=== PATIENT | female | born 1955 | race Caucasian/White ===

== ENCOUNTER 2019-05-29 18:21 | Inpatient (IN) | payer OTHER ==
[~2019-05-29] VITALS: Ht 162.6 cm; Wt 87.2 kg
[2019-05-29] VITALS (14 sets, daily range): BP systolic 67–99; BP diastolic 39–59; BMI 33.0
[2019-05-29] MEDS ORDERED: LISINOPRIL10 MG PO (19:03)
--- NOTE | 2019-05-29 19:07 | NUR ---
VALSALVA MANUVER ATTEMPTED WITH NO CHANGE IN HEART RATE. PT PROVIDED WITH ICE TO FACE. NO CHANGE IN HEART RATE. EDP FINA AT BEDSIDE FOR FURTHER ORDERS.
--- NOTE | 2019-05-29 19:11 | NUR ---
VITAL SIGNS AT THIS TIME. HR 211, BP 83/50, RR 18
--- NOTE | 2019-05-29 19:24 | NUR ---
VERSED GIVEN. EDP FNIA AT BEDSIDE. RESPIRATORY AT BEDSIDE. PT PLACED ON NRB AT 15L.
--- NOTE | 2019-05-29 19:26 | NUR ---
RESPIRATORY AT BEDSIDE, EDP FINA AT [facility]. PT SHOCKED WITH 200 J.
--- NOTE | 2019-05-29 19:45 | NUR ---
PT LYING SUPINE IN BED. NO ACUTE DISTRESS NOTED. FAMILY AT BEDSIDE. PT AROUSABLE TO VOICE. PT DENIES ANY COMPLAINTS AT THIS TIME. WILL CONTINUE TO MONITOR.
[2019-05-29 20:02] LABS: BASOPHILS 0.2 % (0-2); EOSINOPHILS 1.4 % (0-7); HEMATOCRIT 44.4 % (36.0-48.0); IMMATURE GRANULOCYTES 0.3 % (0-5); LYMPHOCYTES 28.7 % (15-50); MCH 30.2 pg (26.0-34.0); MCHC 33.8 g/dL (31.0-37.0); MCV 89.3 fL (80.0-100.0); MEAN PLATELET VOLUME 9.5 fL (7.4-10.4); MONOCYTES 7.1 % (2-11); NEUTROPHILS 62.3 % (40-80); PLATELET COUNT 342 10x3/uL (130-400); RBC 4.97 10x6/uL (4.00-5.40); RDW 13.7 % (11.5-14.5); WBC 12.8 10x3/uL (4.8-10.8)
[2019-05-29 20:18] LABS: CALC OSMOLALITY 290 mosm/kg (275-300); CALCIUM 9.2 mg/dL (8.5-10.1); CARBON DIOXIDE 21.8 mmol/L (21.0-32.0); CHLORIDE - SERUM 105 mmol/L (98-107); CREATININE - SERUM 1.7 mg/dL (0.6-1.3); GLUCOSE 220 mg/dL (74-106); POTASSIUM - SERUM 4.4 mmol/L (3.5-5.1); SODIUM 141 mmol/L (136-145); UREA NITROGEN 22 mg/dL (7-18); eGFR NON AFRICAN AMERICAN 32 mL/min (90-120)
[2019-05-29 20:25] LABS: APTT 31.1 SECONDS (22.8-39.4); INR 0.92 (0.85-1.17); PROTIME 12.3 SECONDS (11.6-15.0)
[2019-05-29 20:33] LABS: ALBUMIN 3.9 g/dL (3.4-5.0); ALKALINE PHOSPHATASE 158 U/L (30-120); ALT (SGPT) 316 U/L (10-68); BILIRUBIN - TOTAL 0.36 mg/dL (0.2-1.3); CKMB 1.7 U/L (0.0-3.6); CREATINE KINASE 110 UL (21-215); PROTEIN - SERUM 7.7 g/dL (6.4-8.2)
[2019-05-29 20:40] LABS: TROPONIN-I 0.188 ng/mL (0.000-0.060)
--- NOTE | 2019-05-29 21:00 | NUR ---
PT LYING SUPINE IN BED. PT DENIES ANY COMPLAINTS AT THIS TIME. AT BEDSIDE. WILL CONTINUE TO MONITOR.
--- NOTE | 2019-05-29 22:55 | NUR ---
PT ARRIVED ON STRETCHER BY MARIANN BOUCHER. PT SCOOTED SELF FROM STRETCHER TO BED. ALERT AND ORIENTED, SPEECH CLEAR. R AC PIV AND L HAND PIV PATENT, SEE IV FLOWSHEET. NSR ON MONITOR, HR 50'S. PT DENIES ANY NEEDS AT THIS TIME. BED IN LOW POSITION, CALL LIGHT IN REACH. WILL CONTINUE TO MONITOR.
[2019-05-30] VITALS (49 sets, daily range): BP systolic 89–123; BP diastolic 48–71; Ht 162.6 cm; Wt 87.2 kg
--- NOTE | 2019-05-30 01:00 | NUR ---
PT SLEEPING. VSS, NO SIGNS OF ACUTE DISTRESS NOTED. WILL MONITOR.
--- NOTE | 2019-05-30 03:00 | NUR ---
REASSESSMENT COMPLETE, SEE FLOWSHEET.
[2019-05-30 05:35] LABS: BASOPHILS 0.2 % (0-2); EOSINOPHILS 0.2 % (0-7); HEMATOCRIT 39.2 % (36.0-48.0); HEMOGLOBIN 12.8 g/dL (12-16); IMMATURE GRANULOCYTES 0.3 % (0-5); LYMPHOCYTES 38.5 % (15-50); MCH 29.8 pg (26.0-34.0); MCHC 32.7 g/dL (31.0-37.0); MCV 91.2 fL (80.0-100.0); MEAN PLATELET VOLUME 9.4 fL (7.4-10.4); MONOCYTES 12.9 % (2-11); NEUTROPHILS 47.9 % (40-80); PLATELET COUNT 325 10x3/uL (130-400); RDW 14.1 % (11.5-14.5)
[2019-05-30 05:42] LABS: WBC 9.2 10x3/uL (4.8-10.8)
--- NOTE | 2019-05-30 05:50 | NUR ---
PT SLEEPING. VSS, NO SIGNS OF DISTRESS NOTED.
[2019-05-30 06:10] LABS: ALBUMIN 3.3 g/dL (3.4-5.0); ANION GAP 13.3 mmol/L (8-16); BILIRUBIN - TOTAL 0.22 mg/dL (0.2-1.3); CALCIUM 8.2 mg/dL (8.5-10.1); POTASSIUM - SERUM 4.3 mmol/L (3.5-5.1)
[2019-05-30 06:14] LABS: CREATININE - SERUM 1.2 mg/dL (0.6-1.3)
--- NOTE | 2019-05-30 09:08 | NUR ---
0700 PT RECIEVED ALERT AN DORIENTED IN BED DENIES PAIN LEVOPHED INFUSING, WILL CONTINUE TO MONITOR 0900 ASSISTED TO BSC, VOIDED AND ASSISTED BCK TO BED, LEVO WEANED OFF PER IV FLOWSHEET, ATE 100% BREAKFAST
--- NOTE | 2019-05-30 17:03 | NUR ---
PT REPOSITIONS SELF, DENIES ALL NEEDS, FAMILY HERE FOR VISITING HOURS AND UPDATED
--- NOTE | 2019-05-30 18:31 | MORECARE ---
CASE MANAGEMENT DISCHARGE SUMMARY PATIENT: FABRICIO TURNER UNIT: [id number] ADM DATE: 05/29/19 AGE: 63 : 53 SEX: F [facility] AUTHOR: RAJAT BUSTOS PHYSICIAN: REFERRING PHYSICIAN: DUY ALLEN MD DATE OF SERVICE: 05/30/19 Discharge Plan Patient Name: FABRICIO TURNER [facility] : 1955 Planned Disposition: Anticipated Discharge Date: Discharge Date: Expected LOS: Initial Reviewer: [email or web address] Initial Review Date: 05/29/2019 Generated: 05/30/19 7:31 pm DCPIA - Discharge Planning Initial Assessment Updated by [email or web address]: Jami Blake on 05/30/19 6:28 pm * Is the patient Alert and Oriented? Yes * How many steps to enter\exit or inside your home? Patient Name: FABRICIO TURNER Page [phone] at 1831 All edits/amendments must be made on the electronic document DICTATION DATE: 05/30/191830 DRILLING MACHINE OPERATOR: DENISE 05/30/191830 RPT#: [id number] DC DATE: STATUS: ADM IN [facility] [address] [place] [address] END OF REPORT
--- NOTE | 2019-05-30 19:00 | NUR ---
BEDSIDE REPORT AND SHIFT ASSESSMENT COMPLETE, SEE FLOWSHEET. VSS, NO SIGNS OF ACUTE DISTRESS NOTED. PT DENIES NEEDS AT THIS TIME. FALL PRECAUTION TEACHING COMPLETED, PT SAID SHE WILL CALL WHEN SHE NEEDS TO GET UP TO USE RESTROOM. BED IN LOWEST POSITION, CALL LIGHT IN REACH. WILL MONITOR.
--- NOTE | 2019-05-30 23:00 | NUR ---
REASSESSMENT COMPLETE, SEE FLOWSHEET. PT SLEEPING. VSS.
[2019-05-31] VITALS (17 sets, daily range): BP systolic 98–140; BP diastolic 46–80
--- NOTE | 2019-05-31 02:15 | NUR ---
DR GABRIEL AND DR ALLEN AT BEDSIDE. DR ALLEN ASKED US TO CALL CARDIOLOGY AND ASK IF THEY WANTED TO ADD ANYTHING OR MONITOR ANOTHER NIGHT. SHE SAID IT IS OK TO DC IF OK WITH DR URIBE.
--- NOTE | 2019-05-31 03:05 | NUR ---
REASSESSMENT COMPLETE, SEE FLOWSHEET.
[2019-05-31 05:51] LABS: ALBUMIN 3.3 g/dL (3.4-5.0); ALKALINE PHOSPHATASE 111 U/L (30-120); BILIRUBIN - TOTAL 0.32 mg/dL (0.2-1.3); CALCIUM 8.4 mg/dL (8.5-10.1); CARBON DIOXIDE 26.5 mmol/L (21.0-32.0); CHLORIDE - SERUM 105 mmol/L (98-107); MAGNESIUM - SERUM 1.7 mg/dL (1.8-2.4); POTASSIUM - SERUM 4.6 mmol/L (3.5-5.1); SODIUM 139 mmol/L (136-145)
[2019-05-31 05:54] LABS: BASOPHILS 0.2 % (0-2); EOSINOPHILS 3.3 % (0-7); HEMATOCRIT 40.9 % (36.0-48.0); HEMOGLOBIN 13.5 g/dL (12-16); IMMATURE GRANULOCYTES 0.1 % (0-5); LYMPHOCYTES 28.1 % (15-50); MCH 29.9 pg (26.0-34.0); MCV 90.7 fL (80.0-100.0); MEAN PLATELET VOLUME 9.1 fL (7.4-10.4); MONOCYTES 8.2 % (2-11); NEUTROPHILS 60.1 % (40-80); PLATELET COUNT 285 10x3/uL (130-400); RBC 4.51 10x6/uL (4.00-5.40); RDW 13.9 % (11.5-14.5); WBC 10.2 10x3/uL (4.8-10.8)
[2019-05-31 05:55] LABS: ALT (SGPT) 206 U/L (10-68); CALC OSMOLALITY 278 mosm/kg (275-300); CREATININE - SERUM 0.8 mg/dL (0.6-1.3); GLUCOSE 100 mg/dL (74-106); PROTEIN - SERUM 6.6 g/dL (6.4-8.2); UREA NITROGEN 16 mg/dL (7-18); eGFR NON AFRICAN AMERICAN 76 mL/min (90-120)
--- NOTE | 2019-05-31 06:00 | NUR ---
MAG REPLACED PER ELECTROLYTE PROTOCOL, NEXT DOSE DUE AT 1000.
--- NOTE | 2019-05-31 08:18 | NUR ---
PT RESTING IN BED EATING BREAKFAST TRAY. NO COMPLAINTS NOTED AT THIS TIME
--- NOTE | 2019-05-31 11:13 | NUR ---
Nutrition Follow-up: Eating well. Reports eating majority of breakfast this AM. Diet: Cardiac Wt: 191.8# (3/); 192# (3/3); 191.8# (3/) Last BM: 05/30 Labs noted: Mg 1.7, Alb 3.3 Meds noted: MagOx, Protonix -Continue current diet as tolerated. -Monitor wt. -RD following.
--- NOTE | 2019-05-31 13:23 | NUR ---
PHYSICAL THERAPY IN ROOM WALKING PT. WALKED 200 FEET. TOLERATED WELL. VSS. WILL CONTINUE TO MONITOR
--- NOTE | 2019-05-31 15:20 | NUR ---
DR URIBE SAID IT IS OK TO DC.
--- NOTE | 2019-05-31 17:50 | NUR ---
PT WHEELED OUT TO PERSONAL VEHICLE. TOLERATED WELL.
--- NOTE | 2019-05-31 19:16 | MORECARE ---
CASE MANAGEMENT DISCHARGE SUMMARY PATIENT: FABRICIO TURNER UNIT: [id number] ADM DATE: 05/29/19 AGE: 63 : 54 SEX: F ROOM/BED: D[facility] AUTHOR: RAJAT BUSTOS PHYSICIAN: REFERRING PHYSICIAN: DUY ALLEN MD DATE OF SERVICE: 05/31/19 Discharge Plan Patient Name[facility]ABRICIO [facility]URNER [facility] [facility] 1955 Planned Disposition: Home Anticipated Discharge Date: Discharge Date: 05/31/2019 Expected LOS: Initial Reviewer: [email or web address] Initial Review Date: 05/29/2019 Generated: 05/31/19 8:15 pm DCPIA - Discharge Planning Initial Assessment Updated by [email or web address]: Jami Blake on 05/30/19 6:28 pm * Is the patient Alert and Oriented? Yes * How many steps to enter\exit or inside your home? Last DP export: 05/30/19 5:31 pm Patient Name: FABRICIO TURNER Page [phone] at 1916 All edits/amendments must be made on the electronic document DICTATION DATE: 05/31/191914 HOT MAN: DENISE 05/31/191914 RPT#: [id number] DC DATE:05/31/19 STATUS: DIS IN [facility] [address] [place] [address] END OF REPORT
--- NOTE | 2019-05-31 19:23 | MORECARE ---
CASE MANAGEMENT DISCHARGE SUMMARY PATIENT: FABRICIO TURNER UNIT: [id number] ADM DATE: 05/29/19 AGE: 63 : 53 SEX: F ROOM/BED: D.03 AUTHOR: AKASH,DOC PHYSICIAN: REFERRING PHYSICIAN: DUY ALLEN MD DATE OF SERVICE: 05/31/19 Discharge Plan Patient Name: FABRICIO TURNER Facility: [facility]:[place] : 1955 Planned Disposition: Home Anticipated Discharge Date: Discharge Date: 05/31/2019 Expected LOS: Initial Reviewer: [email or web address] Initial Review Date: 05/29/2019 Generated: 05/31/19 8:22 pm Comments DCP- Discharge Planning Updated by [email or web address]: Jami Blake on 05/31/19 6:[address] Patient Name: FABRICIO TURNER Admission Status: ER Accout number: [id number] Admission Date: 05-29-2019 : 1955 Admission Diagnosis: Attending: DUY STEIN Current LOS: 2 Anticipated DC Date: Planned Disposition: Home Primary Insurance: [employer] Discharge Planning Comments: CM met with patient to complete initial dc planning assessment. CM educated patient on the CM role and verbal consent given by patient to complete assessment. CM verified patient's address, phone number, and emergency contact phone numbers. Patient lives at home with spouse. At discharge patient plans to return home and feels that this is a safe discharge. CM discussed availability of home health, rehab services, and medical equipment. Patient denies discharge needs at this time. CM will continue to follow and will assist as needed with dc plans/needs. Gericare Aide: Jami Blake DCPIA - Discharge Planning Initial Assessment Updated by [email or web address]: Jami Blake on 05/31/19 7:16 pm * Is the patient Alert and Oriented? Yes * How many steps to enter\exit or inside your home? * PCP FERNANDO * Pharmacy [facility] * Preadmission Environment Home with Family * ADLs Independent * Equipment None * List name and contact numbers for known caregivers / representatives who currently or will assist patient after discharge: SANJUANA TURNER - SPOUSE- [phone] * Verbal permission to speak to the caregivers and representatives has been obtained from the patient. Yes * Community resources currently utilized None * Additional services required to return to the preadmission environment? No * Can the patient safely return to the preadmission environment? Yes * Has this patient been hospitalized within the prior 30 days at any hospital? No Last DP export: 05/31/19 6:16 pm Patient Name: FABRICIO TURNER Page [phone] at 1923 All edits/amendments must be made on the electronic document DICTATION DATE: 05/31/191921 PROJECT INSPECTOR: DENISE 05/31/191921 RPT#: [id number] DC DATE:05/31/19 STATUS: DIS IN [facility] [address] [place] [address] END OF REPORT
== END 2019-05-31 17:50 | disposition home or self-care (01) | DRG 309 ==
LOC: D.ER 18:21 → D.CVICU 20:23
PROVIDERS: Emergency Medicine; Family Medicine; ADMIT Family Medicine; ATTEND Family Medicine
DX: I47.1 Supraventricular tachycardia (principal); N17.9 Acute kidney failure, unspecified; I24.8 Other forms of acute ischemic heart disease; I10 Essential (primary) hypertension; F17.200 Nicotine dependence, unspecified, uncomplicated

== ENCOUNTER 2019-12-12 12:14 | Emergency (ER) | payer OTHER ==
[~2019-12-12] VITALS: Ht 162.6 cm; Wt 79.5 kg
[~2019-12-12 12:14] MED LIST: LISINOPRIL10 MG PO
[2019-12-12 12:25] VITALS: Ht 162.6 cm; Wt 79.5 kg
[2019-12-12] MEDS ORDERED: LISINOPRIL10 MG PO (12:26)
[2019-12-12 12:59] LABS: BASOPHILS 0.4 % (0-2); EOSINOPHILS 2.6 % (0-7); HEMATOCRIT 40.8 % (36.0-48.0); HEMOGLOBIN 13.9 g/dL (12-16); IMMATURE GRANULOCYTES 0.3 % (0-5); LYMPHOCYTES 45.2 % (15-50); MCH 30.7 pg (26.0-34.0); MCHC 34.1 g/dL (31.0-37.0); MCV 90.1 fL (80.0-100.0); MEAN PLATELET VOLUME 8.8 fL (7.4-10.4); MONOCYTES 9.1 % (2-11); NEUTROPHILS 42.4 % (40-80); PLATELET COUNT 269 10x3/uL (130-400); RBC 4.53 10x6/uL (4.00-5.40); WBC 7.2 10x3/uL (4.8-10.8)
[2019-12-12 13:07] LABS: CALC OSMOLALITY 268 mosm/kg (275-300); CARBON DIOXIDE 23.8 mmol/L (21.0-32.0); CHLORIDE - SERUM 103 mmol/L (98-107); CREATININE - SERUM 0.8 mg/dL (0.6-1.3); GLUCOSE 94 mg/dL (74-106); SODIUM 134 mmol/L (136-145); UREA NITROGEN 16 mg/dL (7-18); eGFR NON AFRICAN AMERICAN 76 mL/min (90-120)
[2019-12-12 13:17] LABS: ALBUMIN 3.9 g/dL (3.4-5.0); ALKALINE PHOSPHATASE 102 U/L (30-120); ALT (SGPT) 55 U/L (10-68); AMYLASE - SERUM 69 U/L (25-115); BILIRUBIN - TOTAL 0.32 mg/dL (0.2-1.3); LIPASE 129 U/L (73-393); PROTEIN - SERUM 7.9 g/dL (6.4-8.2); TROPONIN-I < 0.017 ng/mL (0.000-0.060)
[2019-12-12 14:13] LABS: KETONE NEGATIVE (NEGATIVE); NITRITE NEGATIVE (NEGATIVE); UROBILINOGEN NORMAL mg/dL (< 2)
[2019-12-12 14:14] LABS: BACTERIA FEW /HPF (NONE SEEN); BILIRUBIN NEGATIVE (NEGATIVE); WHITE CELLS - URINE 0-5 HPF (0-4)
[2019-12-12 14:39] VITALS: BP 163/85
== END 2019-12-12 14:40 | disposition home or self-care (01) ==
LOC: D.ER 12:14
PROVIDERS: Family Medicine
DX: F41.9 Anxiety disorder, unspecified (principal); Z87.891 Personal history of nicotine dependence; R10.9 Unspecified abdominal pain